=== PATIENT | male | born 1955 | race Caucasian/White ===

== ENCOUNTER 2020-08-22 12:12 | Observation (INO) | payer BC, SELFPAY ==
[2020-08-22] VITALS (21 sets, daily range): BP systolic 112–166; BP diastolic 65–85; PULSE 47–60; RESP 14–20; TEMP 36.5–36.8; O2SAT 95–100; BMI 31.9
--- NOTE | 2020-08-22 12:15 | DI.RAD.S_ITS ---
PROCEDURE: XR CHEST 1V INDICATIONS: chest pain TECHNIQUE: One view of the chest was acquired. COMPARISON: None. FINDINGS: Surgical changes and devices: None. Lungs and pleura: Lungs are clear. No pleural effusions or pneumothorax. Mediastinum: Mediastinal contours appear normal. Heart size is normal. Low lung volumes accentuate pulmonary interstitium and heart size. Bones and chest wall: No suspicious bony lesions. Overlying soft tissues appear unremarkable. IMPRESSION: No acute cardiopulmonary findings Low lung volumes accentuate heart size and pulmonary interstitium Dictated by: Travis Rodriguez M.D. on 08/22/2020 at 12:25 Approved by: Travis Rodriguez M.D. on 08/22/2020 at 12:34
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
[2020-08-22 12:22] LABS: Add Manual Diff / Slide Review NO; Basophils Absolute Auto 100 /uL (0-100); Basophils Percent Auto 0.9 % (0-2); Eosinophils Absolute Auto 300 /uL (0-450); Eosinophils Percent Auto 3.9 % (2-4); Hematocrit 45.4 % (41-53); Hemoglobin 15.6 g/dL (13.5-17.5); Lymphocytes Absolute Auto 1900 /uL (1100-4500); Lymphocytes Percent Auto 28.7 % (25-40); Mean Corpuscular HGB Conc 34.5 % (30-36); Mean Corpuscular Hemoglobin 33.6 PG (26-34); Mean Corpuscular Volume 97.6 fL (80-100); Monocytes Absolute Auto 600 /uL (0-900); Monocytes Percent Auto 9.3 % (3-14); Neutrophils Absolute Auto 3800 /uL (1500-7000); Neutrophils Percent Auto 57.2 % (50-75); Platelet Count 210 X10^3/uL (150-400); Red Blood Cell Count 4.65 X10^6/uL (4.5-5.9); Red Cell Distribution Width 12.9 % (11.6-14.8); White Blood Cell Count 6.6 X10^3/uL (4.5-11.0)
[2020-08-22 12:32] LABS: Alanine Aminotransferase 53 IU/L (<50); Albumin 4.9 g/dL (3.5-5.0); Albumin Globulin Ratio 1.5 (1.0-2.8); Alkaline Phosphatase 66 U/L (38-126); Aspartate Aminotransferase 55 IU/L (17-59); BUN Creatinine Ratio 16.8 (6-22); Bilirubin Total 0.8 mg/dL (0.2-1.3); Blood Urea Nitrogen 17 mg/dL (9-20); Calcium 9.7 mg/dL (8.4-10.2); Carbon Dioxide 26 mmol/L (22-32); Chloride 103 mmol/L (98-107); Creatine Kinase 315 U/L (55-170); Estimated Glomerular Filt Rate > 60.0 mL/min (>60); Globulin 3.3 g/dL (1.7-4.1); Glucose 135 mg/dL (80-110); HEMOLYSIS < 15 (0-50); Lipase 157 U/L (23-300); Magnesium 2.3 mg/dL (1.6-2.3); Potassium 4.3 mmol/L (3.4-5.1); Sodium 138 mmol/L (137-145); Total Protein 8.2 g/dL (6.3-8.2)
[2020-08-22 12:44] LABS: Troponin I < 0.012 ng/mL (0.01-0.034)
[2020-08-22 12:47] LABS: CKMB % Relative Index 0.8 % (1.5-5.0); Creatine Kinase MB 2.56 ng/mL (<2.37)
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
--- NOTE | 2020-08-22 13:35 | PC.NURSE ---
c-collar removed . c-spine cleared.
[2020-08-22] MEDS: LACTATED RINGERS 1,000 ML 1000 ML IV (14:26)
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
[2020-08-22 15:14] LABS: COVID19 - ADMIT (NP swab/PCR) Negative (Negative)
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
--- NOTE | 2020-08-22 17:47 | DI.ECHO.S_ITS ---
[place] [facility]---------+ [facility] +---------+ : : [address] : : : : [id number] : : : : Phone: [phone]+ Echocardiogram Report + + :Name: ALINE KC Study Date: 08/23/2020 Height: 68 in : :[facility] ReadingLocation: Weight: 210 lb : : Gender: Male BSA: 2.1 m2 : :: 1955 Age: 64 yrs BP: 112/70 mmHg: :Reason For Study: [place], [place] 2 YEARS AGO : :Ordering Physician: ESTEPHANIA, : :JORGE STEPHEN Performed By: Angela Bello : :Referring: JORGE ARNOLD : + + Interpretation Summary The left ventricle is normal in size and wall thickness. Left ventricular systolic function appears normal without focal wall motion abnormalities. The ejection fraction is estimated to be 60-65%. Diastolic parameters suggest a relaxation abnormality of the left ventricle, consistent with probable normal filling pressures. The right ventricle is normal in size and function. Pulmonary artery pressures cannot be estimated because of the lack of a measurable TR jet velocity. The left atrium is borderline dilated. Right atrial size is normal. There is mild mitral regurgitation. There is no other significant valvular heart disease. The ascending aorta is mildly enlarged. Procedure: A two-dimensional transthoracic echocardiogram with color flow and Doppler was performed. The study quality was technically adequate. There is no prior echocardiogram noted for this patient. The patient was in sinus bradycardia with heart rates between 46-60 bpm during the exam. Left Ventricle: The left ventricle is normal in size and wall thickness. Left ventricular systolic function appears normal without focal wall motion abnormalities. The ejection fraction is estimated to be 60-65%. Diastolic parameters suggest a relaxation abnormality of the left ventricle, consistent with probable normal filling pressures. Right Ventricle: The right ventricle is normal in size and function. Atria: The left atrium is borderline dilated. Right atrial size is normal. There is no Doppler evidence for an interatrial shunt. Mitral Valve: The mitral valve leaflets appear mildly thickened, but open well. There is mild mitral regurgitation. Aortic Valve: The aortic valve is trileaflet. The aortic valve opens well. There is no aortic valve stenosis. There is trace aortic regurgitation. Tricuspid Valve: The tricuspid valve is normal in structure and function. There is trace tricuspid regurgitation. Pulmonary artery pressures cannot be estimated because of the lack of a measurable TR jet velocity. Pulmonic Valve: The pulmonic valve leaflets are thin and pliable; valve motion is normal. There is trace pulmonic regurgitation. There is no other significant valvular heart disease. Great Vessels: The aortic root is normal size. The ascending aorta is mildly enlarged. The inferior vena cava was not well visualized. Pericardium/ Pleura There is no pericardial effusion. There is no pleural effusion. MMode/2D Measurements & Calculations LVIDd: 4.5 cm LVOT diam: 2.2 cm LVIDs: 2.9 cm Ao root diam: 3.6 cm FS: 35.9 % asc Aorta Diam: 3.6 cm IVSd: 1.0 cm Ao Arch Diam (Prox Trans): 3.3 cm LVPWd: 0.86 cm LV ngo. diameter/BSA (cm/m^2): 2.2 LV sys. diameter/BSA (cm/m^2): 1.4 LA A2 area: 24.9 cm2 RA long axis: 5.1 cm LA A4 area: 16.1 cm2 RA area: 13.7 cm2 LA length (vol): 4.8 cm RA vol: 31.0 ml LA vol: 70.8 ml RA : 14.8 ml/m2 LA vol index: 33.9 ml/m2 RVD1 (basal): 3.5 cm TAPSE: 2.2 cm Doppler Measurements & Calculations Ao V2 max: 142.5 cm/sec LVOT Max He: 105.6 cm/sec Ao V2 mean: 95.9 cm/sec LV V1 max P.5 mmHg Ao max P.1 mmHg LV V1 VTI: 25.7 cm Ao mean P.2 mmHg SRIDEVI(I,D): 2.9 cm2 Ao V2 VTI: 33.6 cm SRIDEVI(V,D): 2.8 cm2 sev ratio: 0.76 SRIDEVI indexed to BSA (cm^2/m^2): 1.4 MV E max he: 67.9 cm/sec TR max he: 186.2 cm/sec MV A max he: 76.0 cm/sec TR max P.9 mmHg MV E/A: 0.89 PA V2 max: 85.3 cm/sec Med Peak E' He: 7.4 cm/sec PA V2 mean: 62.2 cm/sec E/E' med: 9.2 PA mean P.7 mmHg Lat Peak E' He: 8.0 cm/sec PA pr(Accel): 22.9 mmHg E/E' lat: 8.5 E/e' average: 8.8 MV dec time: 0.23 sec SV(LVOT): 97.0 ml Reading Physician:08:27 AM
[2020-08-22 20:53] LABS: Troponin I < 0.012 ng/mL (0.01-0.034)
--- NOTE | 2020-08-22 21:42 | PC.NURSE ---
Pt arrived from ED, via W/C A/O, denies any discomfort this evening. Lungs clear, 98% RA Tele shows SB (50-60) per ICU staff. Call light w/in reach, pt calls apprpriately for needs. Continue w/plan of care.
[2020-08-23 01:00] VITALS: O2SAT 99
[2020-08-23 03:00] VITALS: BP 117/68; PULSE 60; RESP 20; TEMP 36.9; O2SAT 92
[2020-08-23 05:00] VITALS: O2SAT 97
--- NOTE | 2020-08-23 05:44 | PC.NURSE ---
Patient had CPAP ordered at admission, however it was completed by evening shift. Respiratory was notified at start of shift and came to check the patient. Respiratory informed that there are no available CPAP machines and to place the patient on continuous pulse oxy to monitor oxygen while sleeping and notify if their saturation drops.
[2020-08-23 07:02] LABS: BUN Creatinine Ratio 14.9 (6-22); Blood Urea Nitrogen 15 mg/dL (9-20); Calcium 9.1 mg/dL (8.4-10.2); Carbon Dioxide 26 mmol/L (22-32); Chloride 106 mmol/L (98-107); Estimated Glomerular Filt Rate > 60.0 mL/min (>60); Glucose 91 mg/dL (80-110); HEMOLYSIS < 15 (0-50); Magnesium 2.1 mg/dL (1.6-2.3); Potassium 4.1 mmol/L (3.4-5.1); Sodium 137 mmol/L (137-145)
[2020-08-23 07:33] LABS: TSH w/ Reflex to FT4 4.11 uIU/mL (0.47-4.68)
[2020-08-23 08:05] VITALS: BP 125/70; PULSE 59; RESP 18; TEMP 36.6; O2SAT 94
[2020-08-23] MEDS: SODIUM CHLORIDE 0.9% FLUSH 10 ML IV (08:42)
[2020-08-23 08:47] VITALS: O2SAT 98
[2020-08-23 09:00] VITALS: O2SAT 98
--- NOTE | 2020-08-23 10:15 | PC.NURSE ---
Patient educated about diet, activity, medications to continue and medication to stop, and follow up with curriculum director. Patient and verbalized understanding to all discharge teaching. No prescriptions given. Patient left facility with all belongings via wheelchair to private vehicle with by his side.
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
== END 2020-08-23 10:10 | disposition home or self-care (01) ==
LOC: ED 15:14 → AC 16:05
PROVIDERS: Emergency Medicine; Admitting Provider Internal Medicine; Emergency Provider Emergency Medicine; Referring Provider Emergency Medicine; Visit Provider Internal Medicine
DX: R55 Syncope and collapse (principal); I25.2 Old myocardial infarction; I10 Essential (primary) hypertension; E78.5 Hyperlipidemia, unspecified; G47.33 Obstructive sleep apnea (adult) (pediatric); R00.1 Bradycardia, unspecified; Z20.822 Contact with and (suspected) exposure to COVID-19
CPT/HCPCS: 36415; 70450; 71045; 72125; 80048; 80053; 81003; 82550; 82553; 83690; 83735; 84443; 84484; 85025; 87635; 93005; 93010; 93306; 94760; 96360; 96361; 99284; C9803; G0378